=== PATIENT | female | born 1945 | race Caucasian/White ===

== ENCOUNTER 2020-09-03 14:54 | Outpatient (REF) | payer MEDICARE, MEDICAID, SELFPAY ==
[2020-09-03 15:13] LABS: Estimated Average Glucose 126 mg/dL
[2020-09-03 15:34] LABS: Cholesterol 143 mg/dL; HDL Cholesterol 52 mg/dL; LDL Cholesterol Calculated 65 mg/dl; Triglycerides 134 mg/dL
[2020-09-05 08:16] LABS: HBc Num1 0.04 S/CO (0.00-0.79); HBsAGNum1 0.16 S/CO (0.00-0.99); Hepatitis B Core Antibody Nonreactive (Nonreactive); Hepatitis B Surface Antigen Negative (Negative)
[2020-09-05 08:37] LABS: ~Hepatitis B Surface Antibody NONREACTIVE (Nonreactive)
== END 2020-09-03 14:55 | disposition home or self-care (01) ==
LOC: HO.LNP 14:54
PROVIDERS: Visit Provider Nurse Practitioner Family
DX: E11.21 Type 2 diabetes mellitus with diabetic nephropathy (principal)
CPT/HCPCS: 80061; 83036; 86704; 86705; 86706; 87340

== ENCOUNTER 2020-09-05 09:56 | Outpatient (REF) | payer MEDICARE, MEDICAID, SELFPAY ==
--- NOTE | 2020-09-05 | US_ITS ---
EXAMINATION: US ABDOMEN LIMITED CLINICAL INFORMATION: Epigastric pain, nausea. COMPARISON: HIDA scan 08/02/2018. Abdominal ultrasound dated 08/01/2018 TECHNIQUE: Real-time imaging of the right upper quadrant abdominal viscera. FINDINGS: PANCREAS: Normal. LIVER: The liver is normal in size. The liver contour is normal. Liver is diffusely echogenic No focal hepatic lesion. There is no intrahepatic biliary duct dilatation seen. GALLBLADDER: There are multiple echogenic gallstones without wall thickening. No polyps or pericholecystic fluid collection seen. COMMON BILE DUCT: Normal in caliber measuring 0.7 cm in diameter. RIGHT KIDNEY: Normal. No hydronephrosis. No renal calculi or focal parenchymal lesions. The kidney measures 10.5 cm in maximum dimension. FREE FLUID: None. US/US abdomen limited IMPRESSION: Cholelithiasis without wall thickening. Mild hepatic steatosis. Visualized right kidney, CBD and pancreas is unremarkable.
== END 2020-09-05 09:57 | disposition home or self-care (01) ==
LOC: HO.US 09:56
PROVIDERS: PCP Nurse Practitioner Family; Visit Provider Internal Medicine
DX: R10.13 Epigastric pain (principal); R11.0 Nausea
CPT/HCPCS: 76705